=== PATIENT | female | born 1975 | race Caucasian/White ===

== ENCOUNTER 2016-10-09 10:24 | Day surgery (SDC) | payer OTHER, BC ==
[~2016-10-09] VITALS: Ht 152.4 cm; Wt 59.0 kg
[~2016-10-09 10:24] MED LIST: ARTHRITIS PAIN650 M5 PO; ATENOLOL25 MG PO; BACTROBAN OINTM22 GM BOTH NARES; BUSPIRONE HCL5 MG PO; CALCIUM 600 +1 EA16 PO; CEFEPIME HCL2 GM IM; CEFTRIAXONE2 G1 IM; CRANBERRY CONC1 EAC1 PO; DOXYCYCLINE HY100 MG PO; FLEXERIL10 MG PO; FLEXERIL5 MG PO; GABAPENTIN300 MG PO; GABAPENTIN600 MG PO; IRON325 MG PO; LASIX PO; LITE COAT ASPI325 M1 PO; LORATADINE10 M2 PO; NEURONTIN300 MG PO; NEXIUM PO; OMEPRAZOLE40 M1 PO; OXYCHLOROSENE TP; PERCOCET 5/31 TABLET PO; TIZANIDINE HCL2 M1 PO; TOPAMAX PO; TOPAMAX50 MG PO; TRAMADOL HCL50 MG PO; TUSSIN CF COUG118 ML PO; TYLENOL EXTRA500 MG PO; VALIUM5 MG PO; VITAMIN A A1 CAPSULE PO; ZANAFLEX PO; ZANAFLEX2 MG PO; ZOLOFT100 MG PO; [UNRECOGNIZED DRUG - OTHER] TP
[2016-10-09 11:57] LABS: METH RESISTANT S AUREUS PCR NEGATIVE (NEGATIVE)
[2016-10-09 11:58] LABS: PROBE CHECK PASS; SPECIMEN PROCESSING CONTROL PASS
== END 2016-10-09 11:40 | disposition home or self-care (01) ==
LOC: SDC 10:24
PROVIDERS: Surgery
PROC: 02HV33Z Insertion of Infusion Device into Superior Vena Cava, Percutaneous Approach (ICD-10-PCS; principal; 2016-10-09)
DX: M86.9 Osteomyelitis, unspecified (principal); Z53.9 Procedure and treatment not carried out, unspecified reason
CPT/HCPCS: 87641; J0330; J2250; J2405; J3010

== ENCOUNTER → 2016-10-23 | Outpatient (CLI) | payer OTHER, BC | END | disposition home or self-care (01) | LOC: AMB 08:27 | PROC: 02PYX3Z Removal of Infusion Device from Great Vessel, External Approach (ICD-10-PCS; principal; 2016-10-23) | DX: Z45.2 Encounter for adjustment and management of vascular access device (principal); I87.8 Other specified disorders of veins ==

== ENCOUNTER 2017-01-15 13:13 | Emergency (ER) | payer OTHER, BC ==
[~2017-01-15] VITALS: Ht 152.4 cm; Wt 56.2 kg
[2017-01-15 14:22] LABS: HEMATOCRIT 33.3 % (36.0-46.0); MCHC 31.2 G/DL (30.0-36.0); MEAN PLAT.VOLUME 9.7 uM^3 (9.5-12.4); PLATELET COUNT 261 K/uL (156-360); RBC DIS.WIDTH-CV 14.9 % (11.8-14.6); RBC DIS.WIDTH-SD 51.9 % (39-53); RED BLOOD COUNT 3.47 M/uL (3.80-5.20); WHITE BLOOD COUNT 10.4 K/uL (4.1-10.2)
[2017-01-15 14:43] LABS: CHLORIDE 113 mEq/L (99-109); POTASSIUM 4.1 mEq/L (3.7-5.4); SODIUM 140 mEq/L (136-147); TROP-I INTERPRETATION NEGATIVE; TROPONIN-I < 0.01 ng/mL (0.0-0.30)
[2017-01-15 14:45] LABS: GLUCOSE 100 mg/dL (70-99)
[2017-01-15 14:46] LABS: ANION GAP 7 MEQ/L (2-14)
[2017-01-15 14:49] LABS: GFR ESTIMATE (CALCULATED) > 59 mL/min/
[2017-01-15 14:50] LABS: UREA NITROGEN (BUN) 29 mg/dL (9-23)
[2017-01-15 15:31] LABS: ADD MIUA? YES; BILIRUBIN NEGATIVE; BLOOD SMALL; COLOR YELLOW ((YELLOW)); GLUCOSE (STRIP) NEGATIVE; KETONES NEGATIVE; LEUKOCYTES LARGE; NITRITE NEGATIVE; PROTEIN (STRIP) 30; SPECIFIC GRAVITY 1.019 (1.000-1.030); UROBILINOGEN 0.2 MG/DL (0.2-1.0)
[2017-01-15 15:48] LABS: BACTERIA 1+ /HPF; EPITHELIAL CELLS 2+ /HPF; MUCUS NONE SEEN /LPF; OTHER BUDDING YEAST; RED BLOOD CELLS 0-5 /HPF (0-5); UCUL ADDED? YES; WHITE BLOOD CELLS TNTC /HPF (0-5)
[2017-01-15] MEDS ORDERED: KEFLEX500 MG PO (15:56)
[2017-01-15 16:25] VITALS: BP 91/57
== END 2017-01-15 17:21 | disposition home or self-care (01) ==
LOC: EME → EDBD 13:13 → EME 17:21
PROVIDERS: Emergency Medicine
DX: N39.0 Urinary tract infection, site not specified (principal); R06.02 Shortness of breath; Z79.82 Long term (current) use of aspirin
CPT/HCPCS: 71010; 80048; 81003; 84484; 85027; 87086; 87086 GA; 93005; 99281; 99284

== ENCOUNTER 2017-12-28 06:11 | Inpatient (IN) | payer OTHER, BC ==
[~2017-12-28] VITALS: Ht 152.4 cm; Wt 62.5 kg
[~2017-12-28 06:11] MED LIST changes: +KEFLEX500 MG PO; -NEURONTIN300 MG PO; +NEURONTIN400 MG PO; +VALIUM2 MG PO; -VALIUM5 MG PO
[2017-12-28 07:14] LABS: APPEARANCE TURBID ((CLEAR)); BILIRUBIN NEGATIVE; BLOOD NEGATIVE; COLOR YELLOW ((YELLOW)); GLUCOSE (STRIP) NEGATIVE; KETONES NEGATIVE; LEUKOCYTES LARGE; NITRITE NEGATIVE; PROTEIN (STRIP) >=500; SPECIFIC GRAVITY 1.025 (1.000-1.030)
[2017-12-28 07:36] LABS: AMORPHOUS PHOSPHATE CRYSTALS 3+; BACTERIA 3+ /HPF; EPITHELIAL CELLS RARE /HPF; MUCUS NONE SEEN /LPF; RED BLOOD CELLS 0-5 /HPF (0-5); UCUL ADDED? YES; WHITE BLOOD CELLS 20-30 /HPF (0-5)
[2017-12-28 08:00] LABS: BASOPHIL (%) 0.3 % (0-1); BASOPHIL COUNT 0.1 K/uL (0-0.1); EOSINOPHIL (%) 0.8 % (0-5); EOSINOPHIL COUNT 0.2 K/uL (0-0.3); HEMATOCRIT 32.8 % (36.0-46.0); HEMOGLOBIN 10.4 G/DL (11.9-15.5); IMMATURE GRANULOCYTE (%) 1.2 % (0.0-0.7); LYMPHOCYTE (%) 7.9 % (15-42); LYMPHOCYTE COUNT 1.7 K/uL (1.0-2.8); MCH 29.2 PG (29.0-34.0); MCHC 31.7 G/DL (30.0-36.0); MCV 92.1 FL (83-99); MONOCYTE (%) 6.1 % (3-12); MONOCYTE COUNT 1.3 K/uL (0-0.8); NEUTROPHIL (%) 83.7 % (45-76); NEUTROPHIL COUNT 17.6 K/uL (1.8-6.4); PLATELET COUNT 315 K/uL (156-360); RBC DIS.WIDTH-SD 54.2 % (39-53); RED BLOOD COUNT 3.56 M/uL (3.80-5.20)
[2017-12-28 08:35] LABS: CHLORIDE 107 mEq/L (99-109); SODIUM 138 mEq/L (136-147)
[2017-12-28 08:37] LABS: GLUCOSE 156 mg/dL (70-99)
[2017-12-28 08:40] LABS: CREATININE 0.7 mg/dL (0.6-1.3); GFR ESTIMATE (CALCULATED) > 59 mL/min/
[2017-12-28 08:41] LABS: UREA NITROGEN (BUN) 18 mg/dL (9-23)
[2017-12-28] MEDS ORDERED: CYCLOBENZAPRINE10 MG PO (08:48)
[2017-12-28] MEDS ORDERED: NEURONTIN600 MG PO (09:16)
[2017-12-28] MEDS ORDERED: PAXIL40 MG PO (09:21)
[2017-12-28] MEDS ORDERED: PAXIL10 MG PO (09:21)
[2017-12-28] MEDS ORDERED: LIORESAL10 MG PO (09:23)
[2017-12-28] MEDS ORDERED: SINEQUAN10 MG PO (09:23)
[2017-12-28 16:00] VITALS: BP 87/53
[2017-12-28 21:07] VITALS: BP 115/65
[2017-12-28 22:38] VITALS: BP 143/72
[2017-12-29] VITALS (7 sets, daily range): BP systolic 84–110; BP diastolic 50–76
[2017-12-29 06:27] LABS: MCH 27.4 PG (29.0-34.0); MCHC 29.3 G/DL (30.0-36.0); MCV 93.6 FL (83-99); PLATELET COUNT 243 K/uL (156-360); RBC DIS.WIDTH-CV 16.2 % (11.8-14.6); RBC DIS.WIDTH-SD 55.9 % (39-53); RED BLOOD COUNT 2.99 M/uL (3.80-5.20); WHITE BLOOD COUNT 12.2 K/uL (4.1-10.2)
[2017-12-29 06:30] LABS: HEMOGLOBIN 8.2 G/DL (11.9-15.5)
[2017-12-29 07:07] LABS: ALBUMIN 2.2 G/DL (3.2-4.8); ALKALINE PHOSPHATASE 163 IU/L (3-129); ALT (GPT) 16 IU/L (3-49); AST (GOT) 9 IU/L (2-34); CHLORIDE 115 MEQ/L (99-109); CREATININE 0.7 MG/DL (0.6-1.3); GFR ESTIMATE (CALCULATED) > 59 mL/min/; SODIUM 142 MEQ/L (136-147); TOTAL BILIRUBIN 0.4 MG/DL (0.0-1.0); UREA NITROGEN (BUN) 20 mg/dL (9-23)
[2017-12-29 07:11] LABS: GLUCOSE 85 mg/dL (70-99); POTASSIUM 3.7 MEQ/L (3.7-5.4); TOTAL PROTEIN 5.3 G/DL (6.4-8.3)
[2017-12-30 04:11] VITALS: BP 109/63
[2017-12-30 07:11] VITALS: BP 86/56
[2017-12-30 07:40] LABS: HEMATOCRIT 27.6 % (36.0-46.0); HEMOGLOBIN 8.4 G/DL (11.9-15.5); MCH 28.2 PG (29.0-34.0); MCHC 30.4 G/DL (30.0-36.0); MCV 92.6 FL (83-99); PLATELET COUNT 280 K/uL (156-360); RBC DIS.WIDTH-CV 16.7 % (11.8-14.6); RBC DIS.WIDTH-SD 55.9 % (39-53); RED BLOOD COUNT 2.98 M/uL (3.80-5.20)
[2017-12-30 08:14] LABS: ALBUMIN 2.5 G/DL (3.2-4.8); ALKALINE PHOSPHATASE 192 IU/L (3-129); ALT (GPT) 11 IU/L (3-49); AST (GOT) 12 IU/L (2-34); CHLORIDE 113 MEQ/L (99-109); CREATININE 0.5 MG/DL (0.6-1.3); GFR ESTIMATE (CALCULATED) > 59 mL/min/; GLUCOSE 101 mg/dL (70-99); POTASSIUM 3.6 MEQ/L (3.7-5.4); SODIUM 142 MEQ/L (136-147); TOTAL PROTEIN 5.7 G/DL (6.4-8.3); UREA NITROGEN (BUN) 15 mg/dL (9-23)
[2017-12-30 08:15] LABS: TOTAL BILIRUBIN 0.3 MG/DL (0.0-1.0)
[2017-12-30 10:56] VITALS: BP 107/69
[2017-12-30 15:45] VITALS: BP 132/50
[2017-12-30 22:49] VITALS: BP 118/69
[2017-12-31 06:25] LABS: HEMOGLOBIN 8.3 G/DL (11.9-15.5); MCH 28.3 PG (29.0-34.0); MCHC 30.7 G/DL (30.0-36.0); MCV 92.2 FL (83-99); PLATELET COUNT 266 K/uL (156-360); RBC DIS.WIDTH-CV 16.9 % (11.8-14.6); RBC DIS.WIDTH-SD 57.2 % (39-53); RED BLOOD COUNT 2.93 M/uL (3.80-5.20); WHITE BLOOD COUNT 8.1 K/uL (4.1-10.2)
[2017-12-31 06:55] LABS: ALBUMIN 2.3 G/DL (3.2-4.8); ALKALINE PHOSPHATASE 179 IU/L (3-129); ALT (GPT) 12 IU/L (3-49); AST (GOT) 9 IU/L (2-34); CHLORIDE 113 MEQ/L (99-109); CREATININE 0.5 MG/DL (0.6-1.3); GFR ESTIMATE (CALCULATED) > 59 mL/min/; GLUCOSE 89 mg/dL (70-99); SODIUM 143 MEQ/L (136-147); TOTAL BILIRUBIN 0.3 MG/DL (0.0-1.0); TOTAL PROTEIN 5.4 G/DL (6.4-8.3); UREA NITROGEN (BUN) 13 mg/dL (9-23)
[2017-12-31 06:57] LABS: POTASSIUM 4.6 MEQ/L (3.7-5.4)
[2017-12-31 10:14] VITALS: BP 121/74
[2017-12-31 16:00] VITALS: BP 131/79
[2018-01-01 01:16] VITALS: BP 114/67
[2018-01-01 06:27] LABS: HEMATOCRIT 27.2 % (36.0-46.0); HEMOGLOBIN 8.4 G/DL (11.9-15.5); MCH 28.3 PG (29.0-34.0); MCHC 30.9 G/DL (30.0-36.0); MCV 91.6 FL (83-99); PLATELET COUNT 267 K/uL (156-360); RBC DIS.WIDTH-CV 16.6 % (11.8-14.6); RBC DIS.WIDTH-SD 56.2 % (39-53); RED BLOOD COUNT 2.97 M/uL (3.80-5.20); WHITE BLOOD COUNT 10.2 K/uL (4.1-10.2)
[2018-01-01 06:40] LABS: ALBUMIN 2.2 G/DL (3.2-4.8); ALKALINE PHOSPHATASE 173 IU/L (3-129); ALT (GPT) 9 IU/L (3-49); AST (GOT) 8 IU/L (2-34); CHLORIDE 110 MEQ/L (99-109); CREATININE 0.5 MG/DL (0.6-1.3); GFR ESTIMATE (CALCULATED) > 59 mL/min/; GLUCOSE 86 mg/dL (70-99); POTASSIUM 4.6 MEQ/L (3.7-5.4); SODIUM 142 MEQ/L (136-147); TOTAL PROTEIN 5.4 G/DL (6.4-8.3); UREA NITROGEN (BUN) 11 mg/dL (9-23)
[2018-01-01 06:41] LABS: TOTAL BILIRUBIN 0.2 MG/DL (0.0-1.0)
[2018-01-01 07:13] VITALS: BP 136/75
[2018-01-01] MEDS ORDERED: LINEZOLID600 MG PO (07:55)
[2018-01-01 15:15] VITALS: BP 117/70
== END 2018-01-01 16:53 | disposition home health service (06) | DRG 871 ==
LOC: EME 06:11 → ENRESERV 09:56 → 5EAST 09:58 → EDOF 09:58 → ENRESERV 10:06 → 5EAST 11:53
PROVIDERS: Emergency Medicine; Internal Medicine
DX: A41.02 Sepsis due to Methicillin resistant Staphylococcus aureus (principal); L89.154 Pressure ulcer of sacral region, stage 4; L89.324 Pressure ulcer of left buttock, stage 4; T83.518A Infection and inflammatory reaction due to other urinary catheter, initial encounter; N39.0 Urinary tract infection, site not specified; B96.4 Proteus (mirabilis) (morganii) as the cause of diseases classified elsewhere; B96.5 Pseudomonas (aeruginosa) (mallei) (pseudomallei) as the cause of diseases classified elsewhere; Y84.6 Urinary catheterization as the cause of abnormal reaction of the patient, or of later complication, without mention of misadventure at the time of the procedure; E87.2 Acidosis; N31.9 Neuromuscular dysfunction of bladder, unspecified; G80.9 Cerebral palsy, unspecified; I48.91 Unspecified atrial fibrillation; I10 Essential (primary) hypertension; F32.9 Major depressive disorder, single episode, unspecified; K21.9 Gastro-esophageal reflux disease without esophagitis; D50.9 Iron deficiency anemia, unspecified; E11.9 Type 2 diabetes mellitus without complications; F41.9 Anxiety disorder, unspecified; Z74.01 Bed confinement status; Z87.440 Personal history of urinary (tract) infections; Z87.442 Personal history of urinary calculi; Z88.1 Allergy status to other antibiotic agents; Z79.82 Long term (current) use of aspirin
CPT/HCPCS: 71045; 74177; 80048; 80053; 81003; 83605; 85025; 85027; 87040; 87077; 87086; 87186; 87801; 93306; 99281; 99285; A6212; A6214; J0692; J0696; J1650; J2020; J7030; J7120